=== PATIENT | female | born 1970 | race Caucasian/White ===

== ENCOUNTER → 2016-12-11 | Outpatient (CLI) | payer OTHER ==
--- NOTE | 2016-12-11 15:14 | MA ---
Screening Digital Mammogram With iCAD Analysis Clinical Indications: Routine screening. Her maternal grandmother was diagnosed with breast cancer in her 50s. Technique: Standard cephalocaudal projections are obtained. Digital breast tomosynthesis was performe d in the MLO projection with reconstruction at 1.0 mm slice thickness and composite MLO views reconst ructed. This examination is processed by the iCAD computer aided detection system. Comparison: October 2015, September 2014, September 2013, September 2012, September 2011, September 2010, September 2009. Breast density: Type D: Extremely dense. Findings: CAD was reviewed. There is an area of equivocal architectural change in the anterior mid le ft breast identified on the tomographic series. No suspicious microcalcifications are identified. The right breast is stable in appearance. Impression: Possible left breast architectural change requires further evaluation, BI-RADS 0. Recommendation: Spot compression assessment of the left breast with ultrasound suggested if the abnor mality persists on diagnostic evaluation. [facility] will send a result letter to the patient.
== END ==
LOC: FIMAGING 10:58
DX: Z12.31 Encounter for screening mammogram for malignant neoplasm of breast (principal); Z80.3 Family history of malignant neoplasm of breast
CPT/HCPCS: G0202

== ENCOUNTER → 2016-12-24 | Outpatient (CLI) | payer OTHER ==
--- NOTE | 2016-12-24 13:18 | MA ---
Diagnostic Digital Mammogram Left Breast With iCAD Analysis Reason for examination: Evaluate possible architectural change in the subareolar left breast noted on the tomographic screening study December 11, 2016. Technique: An oblique spot compression view is obtained. Also, a true lateral is performed. The exami nation is processed by the iCAD computer-aided detection system. Findings: There is prominent dense glandular pattern in the subareolar left breast. There is equivoca l persistent architectural change versus overlap of normal glandular elements. No suspicious calcific ations are identified.. Impression: Possible persistent architectural change requires further evaluation, BI-RADS 0. Recommendation: Targeted left breast ultrasound which will be subsequently performed today. A verbal report was given to the patient. [facility] with send a result letter.
--- NOTE | 2016-12-24 14:23 | US ---
Left Breast Ultrasound History: Evaluate possible architectural change in the subareolar region of the left breast identifie d on the tomographic screening study November 1826 and further evaluated on diagnostic evaluation dre ier today. Technique: Longitudinal and transverse images were obtained utilizing a 15 MHz transducer. Color Dop pler evaluation is employed for assessment of vascularity. Findings: Sonographic interrogation of the subareolar left breast demonstrates prominent fibroglandul ar elements. No solid mass is seen and there is no architectural change identified. The appearance on mammographic assessment was presumably related to normal glandular elements. At the 11 o'clock posi tion, 4 cm from the nipple, an oval, well-circumscribed hypoechoic nodule is identified measuring 14 x 9 x 19 mm. There is posterior acoustic enhancement. Impression: 1. Solid nodule at the 4 o'clock position is suspicious, BI-RADS 4. 2. Benign findings when considering mammographic and sonographic assessment in the subareolar region of the left breast, BI-RADS 2. Recommendation: Ultrasound-guided core biopsy of the solid nodule in the left breast. Findings and biopsy recommendation were reviewed with the patient in detail. I have contacted the ref erring physician's office and they will fax a biopsy request to the imaging department and we will costello bsequently contact the patient to schedule the ultrasound-guided biopsy. [facility] will send a follow-up letter.
== END ==
LOC: FIMAGING 12:18
PROVIDERS: ATTEND Obstetrics & Gynecology
DX: N63 Unspecified lump in breast (principal)
CPT/HCPCS: G0206

== ENCOUNTER → 2017-06-20 | Outpatient (CLI) | payer OTHER | LOC: FIMAGING 10:17 | PROVIDERS: ATTEND Obstetrics & Gynecology | DX: N63 Unspecified lump in breast (principal) ==

== ENCOUNTER → 2017-12-24 | Outpatient (CLI) | payer OTHER | LOC: FIMAGING 13:04 | PROVIDERS: ATTEND Obstetrics & Gynecology | DX: N63.21 Unspecified lump in the left breast, upper outer quadrant (principal) ==

== ENCOUNTER → 2018-12-25 | Outpatient (CLI) | payer OTHER | LOC: FIMAGING 10:34 | PROVIDERS: ATTEND Obstetrics & Gynecology | DX: Z12.31 Encounter for screening mammogram for malignant neoplasm of breast (principal); N63.21 Unspecified lump in the left breast, upper outer quadrant ==

== ENCOUNTER → 2019-01-07 | Outpatient (CLI) | payer OTHER | LOC: FIMAGING 10:32 | PROVIDERS: ATTEND Obstetrics & Gynecology | DX: R92.2 Inconclusive mammogram (principal) ==